=== PATIENT | female | born 1985 | race Caucasian/White ===

== ENCOUNTER → 2021-05-15 12:23 | Outpatient (CLI) | payer OTHER, SELFPAY ==
--- NOTE | ~2021-05-15 | MM_ITS ---
EXAMINATION: MM screening zaida BI w keli HISTORY: Screening mammogram TECHNIQUE: Craniocaudal and mediolateral oblique 3-D tomosynthesis images were obtained and synthetic 2-D images were generated. Bilateral rotated lateral craniocaudal views. CAD analysis was submitted and interpreted. COMPARISON: No prior mammogram is available for comparison at this institution. BREAST PARENCHYMAL COMPOSITION: The breasts are extremely dense, which lowers the sensitivity of mamm ography. FINDINGS: There is no evidence of suspicious mass, calcification, or architectural distortion to sugg est malignancy in either breast. There has been no suspicious interval change. IMPRESSION: 1. No mammographic evidence of malignancy. 2. Recommend routine screening mammography in one year. BI-RADS Category 1: Negative Reviewed, dictated and finalized at location A.
== END ==
PROVIDERS: Visit Provider Surgery Plastic and Reconstructive Surgery
DX: Z12.31 Encounter for screening mammogram for malignant neoplasm of breast (principal)
CPT/HCPCS: 77063; 77067

== ENCOUNTER 2021-07-10 01:33 | Day surgery (SDC) | payer OTHER, SELFPAY ==
[2021-07-06 17:09] VITALS: BMI 20.3
--- NOTE | 2021-07-06 17:31 | PC.NURSE ---
Report to the Outpatient Waiting Room, entrance under the green pavilion located off [facility], at 1130 on date 07-10-21. OR Time: 1330. - You and your visitor will be asked a series of questions to screen for COVID 19 for your protection. - A mask is required within the hospital. - Only one visitor is allowed at this time. Patient visitors will be guided where to wait when not with patient. Preoperative COVID Testing Requirements: No COVID Test needed if: (proof is required; if not received patient will have Rapid Test prior to entry) - Patient has received COVID Vaccine at least 14 days prior to procedure date or - Patient has positive COVID test result within last 90 days of surgery date. COVID Test needed if above criteria is not met If not COVID vaccinated a COVID test must be conducted within 72 hours of surgery and patient is asked to isolate self from time of testing until procedure. You will go to the [facility] for your COVID testing. The [facility] is located at the corner of [address] [facility]. You will only be called if COVID results are positive and your surgeon may reschedule your elective surgery date. Patients may have clear liquids (water, carbonated beverages, clear teas, apple juice) until 3 hours prior to surgery with a maximum of 20 ounces. 1030 - No food from midnight until time of surgery - Infants may have breast milk until 4 hours before surgery, infant formula 6 hours prior to surgery. - Children will be allowed to drink immediately following surgery. If applicable, please bring a bottle or sippy cup to assist with drinking. Juice, water, soda, and popsicles are readily available. For infants on formula, please bring formula the day of surgery. Pacifiers are allowed. Take the following medications with a SIP of water the morning of surgery: None Medications to discontinue per physician: vitamins and supplements: 07-07-21 Please no make-up, nail romansh, hairspray, perfume, deodorant, or body powder the day of surgery. No jewelry (including any body piercings) or valuables the day of surgery, leave them at home. Please take a shower or bath the night before, or the morning of, surgery with an antibacterial soap. Wear comfortable, loose fitting clothing. Children are encouraged to wear pajamas. - Jewelry must be removed prior to entering the operating room. Rings and piercings that are not removed may be cut off. - The hospital will not accept responsibility for valuables. - Please leave all valuables, including medications, at home the day of surgery. If you are going home after surgery, a licensed escort vehicle driver must drive you home. - NO public transportation without another adult. - We recommend that an adult stay with you for 24 hours following discharge. - We also recommend that you do not drive, make important decision, drink alcoholic beverages, or take any drugs that were not prescribed by your health care provider for at least 24 hours after your discharge time. For Pediatric surgeries, we recommend two adults accompany the child home (only one inside the building at this time). Follow any additional instructions given to you from your surgeon. Telephone instructions given to Mckenzie Boo and asked if any additional questions and then verbalized understanding. Patient advised to call surgeon office or pre surgery nurse liaison [phone] if any additional questions.
[2021-07-10] VITALS (8 sets, daily range): BP systolic 116–128; BP diastolic 81–89; PULSE 56–88; RESP 14–18; TEMP 36.8; O2SAT 99–100
--- NOTE | 2021-07-10 12:05 | WPDHPUPDATE1 ---
History and Physical Update Update Date/Time: 07/10/21 12:05 History and Physical has been reviewed, including an updated exam of the patient. There are NO changes in the patient's condition. Risks, benefits, and alternatives have been discussed and questions answered. Patient agrees to proceed with procedure.
[2021-07-10 12:14] LABS: Urine Cotinine NEGATIVE
--- NOTE | 2021-07-10 12:25 | W.PM.PROC2 ---
Procedure Note - Detailed Date of Procedure 07/10/21 Pre-op Diagnosis Micromastia Post-op Diagnosis same Procedure Performed Bilateral augmentation mammaplasty Surgeon Chito Bledsoe MD Anesthesia general Findings Bilateral dual plane 1 Nathanael Medley Cohesive 450cc Right REF# SCF-450 SN [id number] Left REF# [id number] SN [id number] Description of Procedure She is here today for bilateral breast augmentation. Previously and again today the risks, benefits, alternatives were discussed in extensive detail. I wanted her to be very realistic about the risks involved as well as expectations. We discussed aftercare and what to monitor for. Made sure answered all of her questions to her satisfaction today and consent was obtained. Marked in the preoperative holding area with their verification. The patient was taken to the operating room placed supine on the operating table. Anesthesia was provided by anesthesiology. A surgical time-out was taken. We cleansed the skin and 1% lidocaine and 0.25% Marcaine with epinephrine was used anesthetize as a field block. She was prepped and draped in a standard sterile fashion. Tegaderm nipple Barreto were placed. A 15 blade used to make an incision along the inframammary fold. Dissection was continued at 45 degree angle until the chest wall as identified. I incised the pectoralis major along its inferior border and completely released the inferior border leaving the medial border intact. I created a subpectoral pocket in the appropriate dimensions based on our preoperative planning for the implant. I then copiously irrigated with saline solution and verified a strict hemostasis. Next the use a triple antibiotic and Betadine containing solution to irrigate the pocket. I washed my gloves with the triple antibiotic and Betadine solution. We washed the implant immediately upon opening it with this solution and only opened it when we needed it. I used implant funnel and no-touch technique. The implant was introduced into the pocket using the funnel. Having verified positioning of the implant this was closed using 2-0 Vicryl followed by 3-0 Monocryl in a running subcuticular 4-0 Monocryl followed by tissue glue. Fluffs and surgical bra were placed. Patient was awoke and taken to PACU without difficulty. All instrument sponge counts were correct at the end of the case. Estimated Blood Loss 20 Drains No Packing No Pathology none sent Complications No immediate complications Condition stable Disposition PACU
--- NOTE | 2021-07-10 12:30 | WPDANESEPPF ---
Anes - Initial Pre Proc Eval Procedure: Operation Date: 07/10/21 13:30 Proposed Procedures p Bilateral Breast Augmentation Mammoplasty - Chito Bledsoe MD Date/Time: 07/10/21 12:30 Surgeon: Chito Bledsoe MD Pre Op Diagnosis: Micromastia Patient Data Age: 36 Gender: F Height: 1.7 m Weight: 59.2 kg Allergies Allergy/AdvReac Type Severity Reaction Status Date / Time No Known Allergies Allergy Verified 07/10/21 11:46 Home Medications Medication Instructions Recorded Confirmed Type carisoprodol 350 mg tablet 350 mg PO TID PRN #21 tablet 06/24/21 07/10/21 Rx docusate sodium 100 mg capsule 100 mg PO DAILY #14 cap 06/24/21 07/10/21 Rx ondansetron HCl 4 mg tablet 4 mg PO Q8H #21 tablet 06/24/21 07/10/21 Rx oxycodone-acetaminophen 5 mg-325 1 tablet PO Q6H PRN #30 tablet 06/24/21 07/10/21 Rx mg tablet multivit with min-folic acid 1 tablet PO DAILY 07/06/21 07/10/21 History [Adult One Daily Multivitamin] Laboratory Tests 07/10/21 11:28 Cotinine Negative Patient hx anesthesia problems: none Family hx anesthesia problems: none Results Review: All pre-operative results and documents have been reviewed as part of the pre-operative evaluation. [facility] Past Medical History Medical History Raynaud disease Surgical History Surgical History History of appendectomy Social History Social History Smoking status: Never smoker Second hand tobacco smoke exposure: No Alcohol intake: current Drinks per week: 1 Alcohol use details: selzers or wine usually Substance use: never Substance use type: does not use Living arrangements: with family Spiritual care concerns: No Anes - Eval Final PreProcedure Day of Procedure 07/10/21 12:30 Patient weight: normal Heart: regular rate and rhythm Lungs: clear to auscultation Airway: Mallampati scale class II Neurological: alert and oriented Last oral intake: >/= 8 hours ASA classification: II Emergent: no Anesthetic plan: proceed Anesthesia type and monitoring: general LMA and standard monitoring Results Review: All pre-operative results and documents have been reviewed as part of the pre-operative evaluation. Informed Consent: The patient's anesthetic plan and its attendant risks and benefits were discussed with the patient/family/POA. Questions were solicited and answers provided to the satisfaction of the patient/family/POA.
[2021-07-10] MEDS: LIDO 1%/EPINEPHRINE 1:100,000 50 ML VIAL 30 ML INFILTRATE (12:42)
[2021-07-10] MEDS: BUPIVACAINE HCL 0.25% PF 30 ML VIAL INFILTRATE (12:42)
[2021-07-10] MEDS: TRANEXAMIC ACID 1,000MG/ISO100 1,000 MG/100 ML BAG 200 MG IVPB (12:42)
[2021-07-10] MEDS: ceFAZolin 2 GM/D5W 50 ML 2 GM/50 ML BAG IVPB (12:50)
[2021-07-10] MEDS: LACTATED RINGERS 1,000 ML 30 ML IV CONT ×2 (13:48)
[2021-07-10] MEDS: oxyCODONE HCL (*CRX) 5 MG TAB IR PO (15:44)
== END 2021-07-10 16:15 | disposition home or self-care (01) ==
PROVIDERS: PCP Internal Medicine; Visit Provider Surgery Plastic and Reconstructive Surgery
PROC: (CPT 19325; principal; 2021-07-10 13:30)
DX: Z41.1 Encounter for cosmetic surgery (principal); N64.82 Hypoplasia of breast; Z79.899 Other long term (current) drug therapy
CPT/HCPCS: 19325; 80307; A9270; J0690; J1100; J1580; J2250; J2270; J2405; J2704; J7120

== ENCOUNTER 2022-04-23 15:20 | Emergency (ER) | payer OTHER, SELFPAY ==
[2022-04-23 15:32] VITALS: BP 115/91; PULSE 100; RESP 18; TEMP 36.4; O2SAT 100
--- NOTE | 2022-04-23 15:48 | ED.GENADULT ---
HPI - General Adult General Chief complaint: Eye Problems Stated complaint: eye irritation History of Present Illness HPI narrative: Patient is a 37-year-old female who presents to the [facility] via POV for evaluation of a bilateral knee problem that began 4 days ago. Additionally, she reports erythema, irritation, and pruritus. She also reports dry skin on bilateral lower lids. Zyrtec, Flonase, and Benadryl provides minimal relief. Seasonal changes worsening symptoms. Patient has a history of allergic c rhinitis. Related Data Home Medications Medication Instructions Recorded Confirmed norgestimate-ethinyl estradiol 1 tablet DAILY 04/23/22 04/23/22 0.18 mg/0.215mg/0.25mg-35 mcg(28)tablet (Tri-Sprintec (28)) Allergies Allergy/AdvReac Type Severity Reaction Status Date / Time No Known Allergies Allergy Verified 04/23/22 15:38 Review of Systems Review of Systems: Pertinent negatives injury, fever, chills, sweats, malaise, change in appetite, poor p.o. intake, dizziness, headache, LOC, ear pain/drainage, rhinorrhea, sinus problems, lymphadenopathy, vision changes, dry eyes, eye drainage, eye pain, foreign body sensation, photophobia, chest pain, heart palpitations/murmurs, cough, and shortness of breath. [facility] Past Medical History Medical History (Updated 04/23/22 @ 15:57 by Mayra Wyatt, [facility], ) Abnormal Pap smear of cervix 2006 lgsil per pt Encounter for IUD insertion 2012 Mirena insertion Encounter for IUD removal 11/29/13 Mirena removal Fever blister Gestational hypertension inversion of uterus Pre-eclampsia Raynaud disease Surgical History Surgical History (Updated 04/07/22 @ 15:29 by Melina Graham) H/O LEEP (~2006) History of appendectomy (~2012) History of dilation and curettage (11/27/14) remove placenta History of elective Family History Family History (Updated 04/07/22 @ 15:28 by Melina Graham) Grandparent Diabetes mellitus maternal grandmother Breast cancer maternal grandmother Father Hypertension Alcoholism Social History Social History Smoking status: Unknown if ever smoked Second hand tobacco smoke exposure: No Alcohol intake: current Drinks per week: 1 Alcohol use details: selzers or wine usually Substance use: never Substance use type: does not use Spiritual care concerns: No Exam Narrative: GENERAL: Well-appearing, well-nourished, and in no acute distress. HEAD: Normocephalic, atraumatic. No sinus tenderness or facial swelling appreciated. EYES: Bilateral conjunctiva are mildly erythematous, left worse than right. Bilateral lower eyelids arm dry and scaly. EOMI. No evidence of swelling or drainage. Periorbital are is without erythema, swelling, pain, and warmth. Bilateral eyelids and lashes are normal. Bilateral sclera are injected. ENT: Nares clear, no rhinorrhea or epistaxis. Bilateral turbinates without erythema/ swelling. Mucous membranes moist and pink. Uvula is midline without erythema and swelling. No evidence of petechial rash, cobblestoning, lesions, ulcers, erythema, swelling, exudates, peritonsillar abscess, tenting, or drooling. Breath odor and voice normal. NECK: Supple. No Lymphadenopathy or nuchal rigidity appreciated. CHEST: Bilateral lung nickerson are clear to auscultation. No respiratory distress. No evidence of cough or pleuritic cp upon examination. HEART: Regular rate and rhythm. No murmur, gallop, or rub heard. EXTREMITIES: Normal range of motion. No edema. SKIN: Warm, dry, no rash. NEURO: No focal deficits. Alert and oriented x3. Course Course Level of Care: Express Care Visit Vital Signs Vital signs: Vital Signs Temperature 97.6 F 04/23/22 15:32 Pulse Rate 100 04/23/22 15:32 Respiratory Rate 18 04/23/22 15:32 Blood Pressure 115/91 H 04/23/22 15:32 Pulse Oximetry 100 04/23/22 15:3
== END 2022-04-23 16:01 | disposition home or self-care (01) ==
PROVIDERS: Emergency Provider Nurse Practitioner Family; PCP Internal Medicine
DX: H10.13 Acute atopic conjunctivitis, bilateral (principal); H01.112 Allergic dermatitis of right lower eyelid; I73.00 Raynaud's syndrome without gangrene
CPT/HCPCS: 99213; G0463

== ENCOUNTER 2023-12-20 10:44 | Outpatient (CLI) | payer OTHER, SELFPAY ==
--- NOTE | ~2023-12-20 | MM_ITS ---
EXAMINATION: MM scrn zaida implant BI w keli HISTORY: Screening mammogram TECHNIQUE: Craniocaudal and mediolateral oblique 3-D tomosynthesis images with implant displacement a nd synthetic 2-D images were generated. Craniocaudal and mediolateral oblique views of the breasts wi thout implant displacement were obtained using full field digital mammography. CAD analysis was submi tted and interpreted. COMPARISON: 05/15/2021 BREAST PARENCHYMAL COMPOSITION: Dense: The breasts are heterogeneously dense, which may obscure small masses FINDINGS: There is no evidence of suspicious mass, calcification, or architectural distortion to sugg est malignancy in either breast. There has been no suspicious interval change. IMPRESSION: 1. No mammographic evidence of malignancy. 2. Recommend routine screening mammography in one year. BI-RADS Category 1: Negative Reviewed, dictated and finalized at location B.
== END 2023-12-20 10:45 ==
PROVIDERS: PCP Obstetrics & Gynecology; Visit Provider Obstetrics & Gynecology
DX: Z12.31 Encounter for screening mammogram for malignant neoplasm of breast (principal)
CPT/HCPCS: 77063; 77067

== ENCOUNTER 2025-02-02 08:26 | Outpatient (CLI) | payer OTHER, SELFPAY ==
--- NOTE | ~2025-02-02 | MM_ITS ---
EXAMINATION: MM scrn zaida implant BI w keli HISTORY: Screening mammogram TECHNIQUE: Craniocaudal and mediolateral oblique 3-D tomosynthesis images with implant displacement a nd synthetic 2-D images were generated. Craniocaudal and mediolateral oblique views of the breasts wi thout implant displacement were obtained using full field digital mammography. CAD analysis was submi tted and interpreted. COMPARISON: Comparison to multiple prior studies sequentially, with oldest reviewed study dated 04/25. BREAST PARENCHYMAL COMPOSITION: Dense: The breasts are extremely dense, which lowers the sensitivity of mammography. FINDINGS: There is no evidence of suspicious mass, calcification, or architectural distortion to sugg est malignancy in either breast. There has been no suspicious interval change. IMPRESSION: 1. No mammographic evidence of malignancy. 2. Recommend routine screening mammography in one year. BI-RADS Category 1: Negative Reviewed, dictated and finalized at location B.
== END 2025-02-02 08:27 | disposition home or self-care (01) ==
LOC: MICIMG 08:27
PROVIDERS: PCP Obstetrics & Gynecology; Visit Provider Obstetrics & Gynecology
DX: Z12.31 Encounter for screening mammogram for malignant neoplasm of breast (principal)
CPT/HCPCS: 77063; 77067